=== PATIENT | female | born 1960 | race Asian ===

== ENCOUNTER 2023-09-04 16:34 | Emergency (ER) | payer SELFPAY ==
[2023-09-04 16:41] VITALS: BP 104/74; PULSE 77; RESP 16; TEMP 98.5; BMI 21.2
[2023-09-04] MEDS ORDERED: LORATADINE 10 MG TABLET ONE (17:17)
[2023-09-04] MEDS ORDERED: ALBUTEROL SO4 2.5/IPRATROPIUM 0.5 INH SOL 3 ML VIAL.NEB. NEB ONE (17:18)
[2023-09-04] MEDS: LORATADINE 10 MG TABLET PO ONE (17:23)
[2023-09-04] MEDS: ALBUTEROL SO4 2.5/IPRATROPIUM 0.5 INH SOL 3 ML VIAL.NEB. NEB ONE (17:23)
== END 2023-09-04 18:40 | disposition home or self-care (01) ==
LOC: JERFT 16:34
PROC: 3E0F7GC Introduction of Other Therapeutic Substance into Respiratory Tract, Via Natural or Artificial Opening (ICD-10-PCS; principal; 2023-09-04)
DX: J45.41 Moderate persistent asthma with (acute) exacerbation (principal); R06.02 Shortness of breath
CPT/HCPCS: 71046-TC-FY; 99283-25

== ENCOUNTER 2023-09-12 15:44 | Emergency (ER) | payer OTHER ==
[2023-09-12 15:47] VITALS: TEMP 98.4; BMI 21.2
[2023-09-12] MEDS ORDERED: predniSONE 20 MG TABLET (UD) ONE (16:21)
[2023-09-12] MEDS ORDERED: ALBUTEROL SO4 2.5/IPRATROPIUM 0.5 INH SOL 3 ML VIAL.NEB. NEB ONE (16:21)
[2023-09-12] MEDS: predniSONE 20 MG TABLET (UD) PO ONE (16:22)
[2023-09-12] MEDS: ALBUTEROL SO4 2.5/IPRATROPIUM 0.5 INH SOL 3 ML VIAL.NEB. NEB ONE (16:22)
[2023-09-12 17:18] VITALS: BP 115/67; PULSE 93; RESP 19
== END 2023-09-12 17:18 | disposition home or self-care (01) ==
LOC: JERFT 15:44
PROC: 3E0F7GC Introduction of Other Therapeutic Substance into Respiratory Tract, Via Natural or Artificial Opening (ICD-10-PCS; principal; 2023-09-12)
DX: J45.21 Mild intermittent asthma with (acute) exacerbation (principal)
CPT/HCPCS: 99283-25